=== PATIENT | female | born 1975 | race Caucasian/White ===

== ENCOUNTER 2017-01-23 09:13 | Emergency (ER) | payer OTHER ==
[~2017-01-23] VITALS: Ht 160 cm; Wt 64.5 kg
[~2017-01-23 09:13] MED LIST: HYDR1TAB PO; prozac
[2017-01-23 09:19] VITALS: BP 108/60; PULSE 68; RESP 17; O2SAT 99
[2017-01-23 09:29] VITALS: BP 108/60; PULSE 68; RESP 17; O2SAT 99
--- NOTE | 2017-01-23 09:35 | ED.REPORT ---
HPI-General Illness Date of Service Jan 23, 2017 ED Provider: Tiana Terry MD Patient is a 41 year old female who presents to the ED s/p accidentally cutting her L wrist with a press box custodian just prior to arrival. Associated symptoms include nausea and a syncopal episode in triage. She was seen by me at this time and brought back to a room. She denies fever, vomiting, or any other symptoms. Her tetanus is not up to date Nursing Notes Stated Complaint: LEFT WRIST LACERATION Chief Complaint: Laceration Nursing Notes Reviewed: Yes Allergies: Coded Allergies: No Known Allergies (Unverified , 05/19/10) Scheduled PRN Hydrocod/APAP-Expunged, Do Not Renew! (VICODIN 5/500-Expunged Drug, Do Not Renew ) 1 Udtab Tablet 1 TAB PO Q4 PRN PRN oxyCODONE-Acetaminophen 5-325 mg (oxyCODONE-Acetaminophen 5-325 mg) 1 Each Tablet 1 TAB PO Q6H PRN PRN For Pain Miscellaneous Medications ([prozac]) General Time Seen by MD: 09:30 Chief Complaint Other (Laceration ) Hx Obtained From: Patient Arrived By: Wheelchair Sudden in Onset?: Yes Onset Occurred: Just prior to arrival Past Medical History Past Medical History Anxiety Reports: Depression Past Surgical History Tubal Smoking History Former Smoker Social History Other Social History: Good social support, Ambulatory Status Independent Review of Systems +laceration over L wrist Full Review of Systems Constitutional: Denies: Fever GI: Reports: Nausea, Denies: Vomiting Musculoskeletal: Reports: Joint pain (L wrist ) Neurologic: Reports: Syncope Complete sys rev & neg: except as marked. Physical Exam Vital Signs Vital Signs Date Time Temp Pulse Resp B/P Pulse Ox O2 Delivery O2 Flow Rate FiO2 01/23/17 13:23 68 17 109/71 99 Room Air 01/23/17 10:45 64 16 105/67 99 Room Air 01/23/17 09:29 36.9 68 17 108/60 99 Room Air 01/23/17 09:19 36.9 68 17 108/60 99 Room Air Head / Eyes: Atraumatic, Normocephalic Neck: Full range of motion Respiratory: Breath sounds normal, Clear to auscultation, No respiratory distress Cardiovascular: Intact distal pulses Neurologic: Alert, Oriented, Nonfocal Psychiatric: Mood/affect normal, Behavior normal, Normal thought content General/Constitutional: Well developed Pale, diaphoretic. Syncopal upon arrival but came to as she was being taken back to a room. Wrist / Hand: Neurologic intact, Vascular intact, Tendon function NL Laceration from the distal L wrist extending to thenar eminence. Bleeding controlled. Skin: Warm, Dry Laceration to L wrist Interpretation & Diagnostics Lab Results Interpretation Test 01/23/17 09:41 Hold Purple Top Tube Received (Received) Hold Blue Top Tube Received (Received) Hold Troy Top Tube Received (Received) Procedures Laceration Management Laceration Management: Multiple mattress and simple sutures Time: 12:22 Procedure Performed by: ED physician Consent / Setup / Site Prep: Informed consent provided, Consent from patient , Time-out performed, Hand hygiene observed, Stand sterile technique Location of Wound: Distal L wrist extending to the thenar eminence Wound Length: 7 cm Local Anesthesia: Lidocaine 1% Irrigation: Copious Foreign Body Explore / Removal: Explored for foreign body (None) Repair Skin: ___ O (4), Nylon Post-Procedure / Complications: Antibiotic oint applied, Dressing applied, No complications, Condition improved, Tolerated procedure well, Patient stable Splint Application - Fx Mgt Time: 12:51 Procedure Performed by: ED physician Precise Anatomic Location: L wrist for positioning Definitive Fracture Care: Pain control Post-Procedure / Complications: Cap refill normal, Post splint vascular nl, Post splint neuro nl, Condition improved, Tolerated procedure well, Patient stable Splint Post-Application Eval Extremity Condition: Cap refill < 2 sec, Distal sensation intact, Distal motor Intact, No compartment syndrome Re-Eval/Medical Decision Time of Eval: 12:38 Re-Evaluation/Progress Note: Discussed plan for discharge. Patient understands and agrees with plan. All questions addressed at this time. Counseled Regarding: Diagnosis, Need for follow-up, When/why to return to ED Discharge & Departure Primary Impression: Laceration Disposition: Home Discharge Condition All VS Reviewed: Yes Condition: Improved Patient Instructions: Care For Your Stitches (ED) You do have a large laceration to her left wrist from the press box custodian however your quite tim in that it did not cut through anything deeper than the skin. I placed a number of stitches. Because they go across the flexor surface of your wrist, I am going to recommend that you do not have them removed for 14 days You did have a tetanus shot updated today I did give her a wrist splint to use simply for comfort, I think the immobilization will be helpful. Please use 600 mg of ibuprofen as needed for pain. If the pain is severe and add 1 ibuprofen to this Return to the emergency department if you notice redness increasing pain increasing swelling or feel that something is not healing appropriately I hope I got the tatoo edges perfect for you:) Referrals: Jeremiah Sorensen MD (PCP) [facility] [place] Scribe Attestation Portions of this note were transcribed by Brent Sullivan. I, Dr. Terry personally performed the history, physical exam and medical decision-making; I reviewed and confirmed the accuracy of the information in the transcribed note. Signed by: Brent Sullivan 01/23/17, 1316 Taina Terry MD Jan 23, 2017 09:35 BRENT SULLIVAN Jan 23, 2017 09:39
[2017-01-23] MEDS ORDERED: 0.9% Sodium Chloride 1,000 ML IV ONE (09:46)
[2017-01-23] MEDS ORDERED: Ondansetron 2 mg/mL 2 mL Inj IVPUSH ONE (09:50)
[2017-01-23] MEDS: HYDROmorphone 0.5 mg/0.5 mL iSecure Syringe IVPUSH PRN ×4 (09:57→11:26)
[2017-01-23 10:45] VITALS: BP 105/67; PULSE 64; RESP 16; O2SAT 99
[2017-01-23] MEDS ORDERED: TdaP Vaccine 0.5 mL Inj IM ONE (12:10)
[2017-01-23] MEDS ORDERED: OXYC1TAB24 PO (13:12)
[2017-01-23] MEDS ORDERED: oxyCODONE-Acetamin 5-325 mg Tablet PO ONE (13:15)
[2017-01-23 13:23] VITALS: BP 109/71; PULSE 68; RESP 17; O2SAT 99
== END 2017-01-23 13:24 | disposition home or self-care (01) ==
LOC: SED 09:13
DX: S61.512A Laceration without foreign body of left wrist, initial encounter (principal); Y28.8XXA Contact with other sharp object, undetermined intent, initial encounter; Y93.89 Activity, other specified; Y92.89 Other specified places as the place of occurrence of the external cause; Y99.8 Other external cause status; R11.0 Nausea; F41.8 Other specified anxiety disorders; Z87.891 Personal history of nicotine dependence; Z23 Encounter for immunization
CPT/HCPCS: 90471; 90715; 96361; 96374; 96375; 96376; 99284; J1170; J1885; J2405; J7030